=== PATIENT | female | born 1980 | race Asian ===

== ENCOUNTER 2017-02-10 05:27 | Day surgery (SDC) | payer OTHER ==
[2017-02-09 09:52] VITALS: BMI 24.1
[2017-02-10] VITALS (10 sets, daily range): BP systolic 110–123; BP diastolic 62–73; PULSE 58–66; RESP 13–33; Ht 162.6 cm; Wt 68.7 kg
[~2017-02-10] VITALS: Ht 162.6 cm; Wt 68.7 kg
--- NOTE | 2017-02-10 04:45 | PREOPHP ---
DATE OF ADMISSION: 02/10/2017 HISTORY OF PRESENT ILLNESS: This is a 37-year-old lady, 2, para 2. Her last normal menstru al period was a few days prior to admission. She was admitted for marsupialization of right Barthol in's cyst. This patient had the cyst for the last 3 years, and she is having pain in that area. Th e procedure was explained to her, and she understood everything totally. The risks, benefits, and a lternatives were discussed with her as well. PAST PERSONAL HISTORY: No history of diabetes, TB, asthma. ALLERGIES: NO ALLERGIES. SOCIAL HISTORY: The patient does not smoke. She does not drink. MEDICATIONS: She does not take any drugs except her thyroid medication. She has history of thyroid surgery. GYNECOLOGIC HISTORY: She had menarche at the age of 12, every 28 days interval, 3 to 4 days duratio n, and moderate in amount. She is 2, para 2 with 2 normal deliveries. REVIEW OF SYSTEMS: CARDIOVASCULAR: No chest pains. RESPIRATORY: No cough. GASTROINTESTINAL: No diarrhea, no vomiting. GENITOURINARY: No dysuria. PHYSICAL EXAMINATION: GENERAL: Reveals a conscious coherent lady in no acute distress. VITAL SIGNS: Blood pressure 120/80, pulse rate 80 per minute, respirations 16 per minute. BREASTS, HEART, AND LUNGS: Within normal limits. ABDOMEN: Soft. No organomegaly. PELVIC: Revealed the cervix to be firm, uterus of normal size, and adnexa negative for mass. An 8 x 8 cm right Bartholin cyst was noted. RECTAL: Confirmed the pelvic findings. EXTREMITIES: No pedal edema. ADMITTING DIAGNOSIS: Right Bartholin cyst. PLAN: The patient was planned to have marsupialization of the right Bartholin cyst. The procedure was explained to the patient, and she understood everything totally. The risks, benefits, and alter natives were discussed with her as well. Dictated By: OSCAR FREEMAN/CONNOR Conf#: [id number] DID#: [id number]
[2017-02-10] MEDS ORDERED: SEVOFLURANE 15 MIN ONE (07:00)
[2017-02-10] MEDS ORDERED: CEFAZOLIN 1 GM INJ ONE (07:00)
[2017-02-10] MEDS ORDERED: FENTAnyl 50 MCG/ML VIAL ONE (07:17)
[2017-02-10] MEDS ORDERED: PROPOFOL 20 ML ONE (07:17)
[2017-02-10] MEDS ORDERED: LIDOCAINE 100 MG SYRINGE ONE (07:17)
[2017-02-10] MEDS ORDERED: MIDAZOLAM 1 MG/ML 2 ML INJ ONE (07:17)
[2017-02-10] MEDS ORDERED: ONDANSETRON 4 MG INJ ONE (07:17)
[2017-02-10] MEDS ORDERED: ONDANSETRON 4 MG INJ IV PRN (07:30)
[2017-02-10] MEDS ORDERED: HYDROmorphONE (0.2 MG/ML) 10ML SYG IV PRN ×3 (07:30)
[2017-02-10] MEDS ORDERED: MEPERIDINE 25 MG INJ IV PRN (07:30)
[2017-02-10] MEDS ORDERED: ACETAMINOPHEN 1000MG/100ML IV 100 ML ONE (08:41)
[2017-02-10] MEDS ORDERED: METOCLOPRAMIDE 10 MG INJ ONE (08:41)
[2017-02-10] MEDS ORDERED: KETOROLAC 30 MG INJ ONE (08:41)
[2017-02-10] MEDS ORDERED: ACETAMINOPHEN 325 MG TAB PO PRN (09:30)
--- NOTE | 2017-02-11 03:32 | OPR ---
DATE OF OPERATION: 02/10/2017 PREOPERATIVE DIAGNOSIS: Right Bartholin cyst, 10 x 10 cm. POSTOPERATIVE DIAGNOSIS: Right Bartholin cyst, 10 x 10 cm. OPERATION PERFORMED: Marsupialization of right Bartholin cyst. SURGEON: Oscar Romano MD WATER TECHNICIAN: Anastacia arthur. ANESTHESIA: General. OPERATIVE TECHNIQUE: Under general anesthesia, the patient was prepped and draped in the usual [facility] ion for vaginal surgery. Pelvic exam under anesthesia revealed the cervix to be firm, and it was no marivel to be prolapsed. The cervix was noted to be at the vaginal vault. Uterus of normal size, and a dnexa were negative for masses. Then the right labia was sutured with to the right suprapubic area to expose the cyst. Then, an incision was performed at the Bartholin cyst that was noted to be abou t 10 x 10 cm. About 3 inch incision was performed at the serosa of the vaginal mucosa above the cys t. Then, the cyst was from the vaginal mucosa by sharp and blunt dissection. When halfwa y of the cyst was , then prior to that, at angle of the vagina, 12 o'clock, 6 o'clock, 3 o' clock, and 9 o'clock position were grasped with an Allis clamp. Then the cyst, after it away from the vaginal mucosa, was opened, and about 100 mL of thick brownish discharge was noted. T his was sent for culture and sensitivity as well as gonorrhea and chlamydia was sent. Then the half of the cyst was excised and was sent to pathology. Then, the cyst capsule was sutured with the vag inal mucosa at 6 o'clock, 3 o'clock, 9 o'clock, and 12 o'clock position. Then this was followed by interrupted suture. After putting the sutures with 2-0 chromic in ____, bleeders were checked, and there was no bleeding noted. Irrigation was done with about 100 mL of normal saline. Then, the sit e of the sutures was covered with iodoform packing to be left after 24 hours. The patient tolerated the procedure well. Estimated blood loss was about 50 mL. Vital signs were stable during and afte r the procedure. Dictated By: OSCAR ROMANO MD NS/NTS Conf#: [id number] DID#: [id number]
== END 2017-02-10 11:03 | disposition home or self-care (01) ==
LOC: SDS 05:27
PROVIDERS: ATTEND Obstetrics & Gynecology
DX: N75.0 Cyst of Bartholin's gland (principal); F17.200 Nicotine dependence, unspecified, uncomplicated
CPT/HCPCS: 56440; 86850; 86900; 86901; 87110; 88104; 88305; J0131; J0690; J2001; J2250; J2405; J2765; J3010; Z7512; Z7610; J1885

== ENCOUNTER 2018-02-04 09:58 | Day surgery (SDC) | END 2018-02-04 13:41 | disposition home or self-care (01) ==